=== PATIENT | female | born 1955 | race Hispanic/Latino ===

== ENCOUNTER 2024-11-19 06:15 | Day surgery (SDC) | payer OTHER ==
[2024-11-13 09:15] LABS: BASOPHILS # (AUTO) 0.04 K/uL (0.00-0.20); BASOPHILS % (AUTO) 0.8 % (0.0-5.0); EOSINOPHILS # (AUTO) 0.24 K/uL (0.00-0.70); EOSINOPHILS % (AUTO) 4.7 % (0.0-8.0); HEMATOCRIT 41.6 % (36-48); IMMATURE GRANULOCYTE ABSOLUTE 0.02 K/uL (0-1); LYMPHOCYTES # (AUTO) 1.2 K/uL (1.0-4.8); LYMPHOCYTES % (AUTO) 22.7 % (21.0-51.0); MEAN CORPUSCULAR HEMOGLOBIN 29.7 pg (27.0-33.0); MEAN CORPUSCULAR HGB CONC 32.7 g/dL (32.0-36.0); MEAN CORPUSCULAR VOLUME 90.8 fL (79-99); MONOCYTES # (AUTO) 0.5 K/uL (0.1-1.0); MONOCYTES % (AUTO) 9.8 % (3.0-13.0); NEUTROPHILS # (AUTO) 3.1 K/uL (1.8-7.7); NEUTROPHILS % (AUTO) 61.6 % (40.0-77.0); PLATELET COUNT (AUTO) 189 K/uL (130-400); RED BLOOD CELL COUNT(AUTO) 4.58 MIL/uL (4.00-5.50); RED CELL DISTRIBUTION WIDTH 12.8 % (11.0-15.5); WHITE BLOOD COUNT (AUTO) 5.1 K/uL (4.8-10.8)
[2024-11-13 09:23] LABS: CREATININE 0.9 mg/dL (0.5-1.0); POTASSIUM 4.2 mmol/L (3.5-5.1)
[2024-11-13 09:27] LABS: APPEARANCE,URINE CLEAR (CLEAR); BILIRUBIN,URINE NEGATIVE (NEGATIVE); COLOR,URINE LIGHT-YELLOW (YELLOW); GLUCOSE, URINE (UA) NEGATIVE (NEGATIVE); KETONES,URINE NEGATIVE (NEGATIVE); LEUKOCYTE ESTERASE ,URINE NEGATIVE Leu/uL (NEGATIVE); NITRATE,URINE NEGATIVE (NEGATIVE); OCCULT BLOOD,URINE NEGATIVE (NEGATIVE); PH,URINE 5.5 (5.0-8.0); PROTEIN,URINE NEGATIVE (NEGATIVE); UROBILINOGEN,URINE 0.2 mg/dL (0.2-1.0)
[2024-11-13 09:30] LABS: INR 0.97 (0.85-1.15); PROTHROMBIN TIME 10.3 SEC (9.6-11.6)
[2024-11-13 09:31] VITALS: BP 136/67; PULSE 54; RESP 17; TEMP 97.4
[2024-11-13 09:34] LABS: ADD UA MICROSCOPIC NO
--- NOTE | 2024-11-13 10:07 | EKG ---
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
--- NOTE | 2024-11-15 08:44 | NUR ---
REPORT DR FERRER REVIEWED EKG. OK TO PROCEED
[~2024-11-19] VITALS: Ht 157.5 cm; Wt 80.3 kg
[2024-11-19] VITALS (13 sets, daily range): BP systolic 125–152; BP diastolic 71–78; PULSE 54–79; RESP 15–20; TEMP 97.8–98.1
[~2024-11-19 06:15] MED LIST: CALCIUM W/D3 PO; LISI1TAB51 PO; OMEP20CA12 PO
[2024-11-19] MEDS: ceFAZolin SODIUM 2 GM VIAL ONE (07:11)
[2024-11-19] MEDS: LACTATED RINGERS 1000ML 1,000 ML IV ONE (07:11)
--- NOTE | 2024-11-19 09:20 | NUR ---
U/S GD LT BREAST WIRE LOCALIZATION PROCEDURE PERFORMED BY Chela BALLARD. PUNCTURE SITE LT BREAST AT 3 O'CLOCK AND PATIENT TOLERATED PROCEDURE WELL. 20G X 7CM WIRE PLACED TO LT BREAST NODULE AND MAMMO IMAGES TAKEN. WIRE PLACEMENT VERIFIED BY Chela BALLARD. END OF PROCEDURE AT 0900_. WIRE SECURED WITH DRESSING AND NO BLEEDING NOTED. PATIENT TRANSPORTED TO OR HOLDING AREA VIA STRETCHERS AT 0920 AND BEDSIDE REPORT GIVEN TO AR YEH.
--- NOTE | 2024-11-19 09:46 | HMCIMG ---
PROCEDURE: MAMMO DX UNILATERAL LEFT HISTORY: Needle localization COMPARISON: None TECHNIQUE: Left breast digital diagnostic mammogram with CAD was performed. No additional views were obtained. FINDINGS: The breasts are heterogeneously dense, which may obscure small masses. Patient is status post needle localization with tip of the hook wire near the microsurgical clip. There is no evidence of a dominant mass, or suspicious microcalcification. There is no evidence of nipple retraction or skin thickening. IMPRESSION: 1. Patient is status post needle localization with tip of the hook wire near the microsurgical clip. Patient will be going to the OR.
[2024-11-19] MEDS ORDERED: acetaMINOPHEN 100 ML ONE (09:50)
[2024-11-19] MEDS ORDERED: FAMOTIDINE 20MG VIAL IV ONE (09:50)
[2024-11-19] MEDS ORDERED: LIDOCAINE PF 100MG/5ML (2%) SYRINGE 5ML ONE (09:57)
[2024-11-19] MEDS ORDERED: MIDAZOLAM HCL 1 MG/ML 2ML VIAL ONE (09:58)
[2024-11-19] MEDS ORDERED: FENTanyl CITRate PF 50 MCG/1 ML 2ML VIAL ONE (09:58)
[2024-11-19] MEDS ORDERED: proPOFol 10 MG/ML 20ML VIAL IV ONE (09:58)
[2024-11-19] MEDS ORDERED: LIDOCAINE HCL 1% 20 ML VIAL ONE (10:03)
--- NOTE | 2024-11-19 10:44 | HMCIMG ---
US GUIDANCE NDL PLCMT IR HISTORY: Left breast complex nodule at 3:00 COMPARISON: None TECHNIQUE: Informed consent was obtained. Risks and benefits were explained to the patient. A timeout was performed. Patient was prepped and draped in a sterile fashion. Local anesthetics was given as required. Under ultrasound guidance, left breast complex nodule with microsurgical clip was localized at 3:00 left breast. Needle localization was performed. Wire was left in place. FINDINGS: Patient tolerated procedure without complication. Patient left the department in good condition. IMPRESSION: 1. Uncomplicated ultrasound guidance left breast nodule needle localization and hook wire placed.
[2024-11-19] MEDS ORDERED: dexaMETHasone SOD PHOSPHATE 4 MG/ML 1ML VIAL ONE (10:59)
[2024-11-19] MEDS ORDERED: ondanSETRON 4MG INJ ONE (11:00)
[2024-11-19] MEDS ORDERED: ePHEDrine SULFate 50 MG/ML AMPULE ONE (11:00)
[2024-11-19] MEDS: ceFAZolin SODIUM 2 GM VIAL IVPB ONE (11:00)
[2024-11-19] MEDS: LIDOCAINE HCL 1% 20 ML VIAL INJ ONE (11:16)
[2024-11-19] MEDS: BUPIvacaine/PF 0.25% 30ML VIAL IJ ONE (11:16)
--- NOTE | 2024-11-19 13:54 | NUR ---
Full and complete discharge instructions given to Patient and Family both verbally and in writing. Explained Surgical procedure precautions and follow up. Left breast site clean dry and intact. No evidence of bleeding, bruising or hematoma. All questions answered. PIV removed with catheter tip intact. at bedside appearing supportive. W/C to POV with to home
--- NOTE | 2024-11-19 14:39 | OP ---
Operative Note: DATE OF PROCEDURE: 11/19/24 SURGEON: SUE STINSON MD CERTIFIED [employer] C[employer]: [] PREOPERATIVE DIAGNOSIS: Biopsy showing atypical cells and metaplasia of left breast 3 o'clock position POSTOPERATIVE DIAGNOSIS: Same PROCEDURE: Excisional biopsy of left breast 3:00 a.m. mass with oncoplastic closure INDICATIONS: [] DESCRIPTION OF PROCEDURE: Patient is taken to the radiology suite where she had needle localization of the lesion. Once this was done by radiology she is brought to the operating room. She is placed on the operating table in a supine position. Once general endotracheal anesthesia is achieved patient's bilateral chest and breast are prepped and draped in sterile fashion. We then proceeded to create a hidden scar on the left breast periareolar incision from the 12 to the 6 o'clock position on the lateral aspect of the nipple. Dissected through the skin and subcutaneous tissue to expose breast tissue. We then created a skin flaps superiorly inferiorly and laterally that were thick . We identified our wire and follow it to the tip but then when further to its tip since the clip was distal to the tip of the wire. . We dissected circumferentially around it and then posteriorly dissected all the way down to the chest wall. This was done because on imaging our specimen was located behind our wire. We then excised the specimen completely with the wire as part of our specimen. We marked our specimen with short white suture cephalad margin, long white marked the medial margin, long black aminta the superficial margin, the short black aminta the lateral margin. We sent off the specimen to mammography to confirm we had good margins and that our clip was within our specimen. Hemostasis was obtained within the cavity. The the partial mastectomy defect was measured at 7*4*5 cm after we had excised our specimen. I then proceeded to create skin and subcutaneous skin flaps to release the breast tissue underneath to create tissue advancement flap for closure. I then released the breast tissue of the pectoralis fascia to create tissue advancement flap for the breast tissue. The length of the tunneling required was additional 3 cm in each direction. Once the flaps were created I proceeded to aminta the inside of the specimen cavity with metal clips, in case we have to return for reexcision we know where the cavity was located. I then proceeded to approximate the flaps in 3 layers using 2-0 Vicryl in interrupted fashion. The breast tissue was advanced 3 cm in each direction. We then proceeded to do a deep dermal sutures as well with 3-0 Vicryl. And then proceeded to close the skin with a 4-0 Monocryl in running subcuticular fashion. The total area of the advancement flap was 28 cm. Once we had heard back from mammography that we had the clip within our specimen with good margins we then proceeded to apply the Dermabond over top of our incision. All counts were correct x2 at the end of the procedure. Patient tolerated the procedure well. ESTIMATED BLOOD LOSS: Minimal Specimens: left 3oclock breast mass Complications: None immediate Devices left in place: None SUE STINSON MD Nov 19, 2024 14:39
--- NOTE | 2024-11-20 09:32 | HMCIMG ---
SURGICAL SPECIMEN REASON: LT BREAST MASS/SPECIMEN. COMPARISON: None TECHNIQUE: Soft tissue specimen x-ray was performed. FINDINGS: Focal wire and microsurgical marker is seen within the soft tissue specimen. IMPRESSION: Findings as described above.
== END 2024-11-19 13:50 | disposition home or self-care (01) ==
LOC: DAH 06:15
PROVIDERS: ATTEND Student in an Organized Health Care Education/Training Program
DX: N63.25 Unspecified lump in the left breast, overlapping quadrants (principal); D24.2 Benign neoplasm of left breast; D05.12 Intraductal carcinoma in situ of left breast; N60.92 Unspecified benign mammary dysplasia of left breast; K21.9 Gastro-esophageal reflux disease without esophagitis; I10 Essential (primary) hypertension; K44.9 Diaphragmatic hernia without obstruction or gangrene; K76.0 Fatty (change of) liver, not elsewhere classified; Z79.899 Other long term (current) drug therapy; Z87.898 Personal history of other specified conditions; Z82.49 Family history of ischemic heart disease and other diseases of the circulatory system; Z80.9 Family history of malignant neoplasm, unspecified; Z84.89 Family history of other specified conditions
CPT/HCPCS: 80048; 85025; 85610; 85730; 81003; 36415; 93005; 19301; 77065; 88307; 76098; 19285; A6260; J1100; A4663; J7120; J3490 ×2; J3010; J0665; J2003; J2250; J2704; J2405; J0690 ×2; C1819; A4930; A4649; A4215; A4213; A4222; A4221; A4216; A4223 ×2; A4600; 76942